=== PATIENT | male | born 1975 | race African-American/Black ===

== ENCOUNTER 2016-06-07 16:07 | Emergency (ER) | payer SELFPAY ==
[2016-06-07 16:46] LABS: BASOPHILS 0.3 % (0.0-2.0); EOSINOPHILS 0.1 % (0-7); HEMOGLOBIN 14.7 g/dL (13.5-17.5); IMMATURE GRANULOCYTES 1.5 % (0-5); LYMPHOCYTES 12.1 % (15-50); MCH 32.1 pg (26.0-34.0); MCHC 33.4 g/dL (31.0-37.0); MCV 96.1 fL (80.0-100.0); MEAN PLATELET VOLUME 9.7 fL (7.4-10.4); MONOCYTES 2.8 % (2-11); NEUTROPHILS 83.2 % (40-80); PLATELET COUNT 243 10x3/uL (130-400); RBC 4.58 10x6/uL (4.20-6.10); RDW 12.2 % (11.5-14.5); WBC 7.8 10x3/uL (4.8-10.8)
[2016-06-07 17:13] LABS: AMYLASE - SERUM 66 U/L (25-115); LIPASE 199 U/L (73-393)
[2016-06-07 18:02] LABS: ALKALINE PHOSPHATASE 76 U/L (46-116); ALT (SGPT) 77 U/L (10-68); BILIRUBIN - TOTAL 0.88 mg/dL (0.2-1.3); CALC OSMOLALITY 281 mosm/kg (275-300); CALCIUM 9.1 mg/dL (8.5-10.1); CARBON DIOXIDE 27.2 mmol/L (21.0-32.0); CHLORIDE - SERUM 102 mmol/L (98-107); CREATININE - SERUM 1.3 mg/dL (0.6-1.3); GLUCOSE 119 mg/dL (74-106); PROTEIN - SERUM 8.2 g/dL (6.4-8.2); SODIUM 141 mmol/L (136-145); UREA NITROGEN 12 mg/dL (7-18); eGFR NON AFRICAN AMERICAN 65 mL/min (90-120)
[2016-06-07 18:13] LABS: CKMB 1.9 U/L (0.0-3.6); CREATINE KINASE 404 UL (21-232)
[2016-06-07 18:15] LABS: TROPONIN-I < 0.017 ng/mL (0.000-0.060)
[2016-06-09 11:18] LABS: HEPATITIS C ANTIBODY <0.1 (0.0-0.9)
== END 2016-06-07 18:47 | disposition home or self-care (01) ==
LOC: D.ER 16:07
PROVIDERS: Emergency Medicine; Physician Assistant
DX: R10.11 Right upper quadrant pain (principal); I10 Essential (primary) hypertension; F17.200 Nicotine dependence, unspecified, uncomplicated